=== PATIENT | female | born 1970 | race Two or more races ===

== ENCOUNTER → 2021-05-26 08:00 | Outpatient (CLI) | payer OTHER ==
[~2021-05-26 08:00] MED LIST: ALL DAY ALLERGY10 M3 PO; ARNUITY ELLIPT50 MCG IH; BENLYSTA200 MG/11; CYMBALTA60 MG PO; GABAPENTIN300 M2 PO; MILLIPRED5 MG PO; OMEGA-31000 MG PO; PROAIR HFA8.5 GM IH; PROBIOTIC1 EAC2 PO; SIMVASTATIN10 MG PO; VITAMIN C500 M6 PO; WAL-ZYR10 MG PO
== END | disposition home or self-care (01) ==
LOC: LAB 08:00 → ADM 09:30 → CIR.AMB 06-01 09:00 → EDSTATUS 06-01 09:30
PROVIDERS: ATTEND Colon & Rectal Surgery
DX: D12.9 Benign neoplasm of anus and anal canal (principal); U07.1 COVID-19; Z86.010 Personal history of colon polyps; K92.1 Melena

== ENCOUNTER 2021-07-20 08:24 | Day surgery (SDC) | payer OTHER | END 2021-07-20 21:30 | disposition home or self-care (01) | LOC: CIR.AMB 08:24 | PROVIDERS: ATTEND Colon & Rectal Surgery | DX: A63.0 Anogenital (venereal) warts (principal); Z20.822 Contact with and (suspected) exposure to COVID-19 ==